=== PATIENT | male | born 1975 | race Caucasian/White ===

== ENCOUNTER 2022-10-02 22:17 | Outpatient (REF) | payer BC, SELFPAY ==
[2022-10-03 03:07] LABS: Chloride* 103 mmol/L (96-114); Potassium* 4.5 mmol/L (3.6-5.1); Sodium* 138 mmol/L (135-149)
[2022-10-03 03:09] LABS: Cholesterol* 152 mg/dL (90-199); Creatinine* 1.1 mg/dL (0.5-1.5); Estimated Glomerular Filt Rate 84 ml/min
[2022-10-03 03:10] LABS: Alanine Aminotransferase* 49 U/L (4-50); Blood Urea Nitrogen* 25 mg/dL (5-24); Calcium* 9.5 mg/dL (8.4-10.6); Carbon Dioxide* 29 mmol/L (20-32); Glucose* 94 mg/dL (60-115); Triglycerides* 67 mg/dL (40-149)
[2022-10-03 03:11] LABS: HDL Cholesterol* 49 mg/dL (>=40); LDL Cholesterol Calculated 90 mg/dL (<100)
== END 2022-10-02 22:18 | disposition home or self-care (01) ==
LOC: LAB 22:17
PROVIDERS: PCP Family Medicine; Visit Provider Family Medicine
DX: I25.10 Atherosclerotic heart disease of native coronary artery without angina pectoris (principal)
CPT/HCPCS: 36415; 80048; 80061; 84460